=== PATIENT | male | born 1995 | race Caucasian/White ===

== ENCOUNTER → 2017-04-27 | Day surgery (SDC) | payer OTHER ==
[~2017-04-27] VITALS: Ht 180.3 cm; Wt 83.2 kg
[~2017-04-27] MED LIST: *morphine SULFATE 8 MG/ML PERIprocedure ONLY ONE; ACETAMINOPHEN/HYDROcodone 325 MG/5 MG TAB PO PRN; BUPIVACAINE HCL PF 0.5% 30 ML VIAL ONE; CHLORHEXIDINE GLUCONATE 2 % 1 PACK (2 CLOTHS) TOPICAL PRN; CIPR250T52 PO; CIPROFLOXACIN/DEXT 400 MG/200 ML IV SCH; DEXAMETHASONE SOD PHOS 4 MG/ML VIAL IV ONE; DO NOT ADM ANY ANTICOAGULANT DRUGS PRN; LACTATED RINGER'S 1000 ML IV PRN; LIDOCAINE HCL 1% PF 5 ML SYRINGE OTHER ONE; LIDOCAINE HCL 2% 50 ML VIAL ONE; MEPERIDINE HCL 50 MG/ML VIAL IM PRN; METOPROLOL TARTRATE 25 MG TAB PO PRN; NEOMYCIN/POLYMYXIN 1 ML G.U. IRRIGANT ONE; NORC5TAB PO; ONDANSETRON HCL 4 MG/2 ML VIAL IV PUSH ONE; PHENYLEPH/NS 1000 MCG/10 ML SYR IV ONE; POVIDONE IODINE 5% (ANTISEPSIS KIT) 4 APPLICATIONS EACH NARE PRN; PROPOFOL 200 MG/20 ML AMP IV ONE; SODIUM CHLORID 0.9% 500 ML IV PRN
[2017-04-27 16:15] VITALS: BP 138/68; PULSE 83; RESP 18; TEMP 98.4; O2SAT 100
--- NOTE | 2017-04-28 05:31 | MP ---
cc: JACOBY VALVERDE III, M.D. DATE OF SURGERY 04/27/2017 PREOPERATIVE DIAGNOSIS Right second metacarpal fracture. PROCEDURE 1. Right second metacarpal fracture open reduction and internal fixation. 2. Use of image intensifier. SURGEON Jacoby Valverde III, MD PROCEDURE The patient was brought to the operating, placed supine on the operating table. After the correct site and side of surgery were verified by members of each team in the room multiple times including the patient and myself, after adequate preoperative markings were verified by everyone, after preoperative time-out was performed to everyone's satisfaction and, after adequate general anesthesia was achieved, the right upper extremity was prepped and draped in traditional sterile surgical fashion. A 50/50 mixture of 2% plain lidocaine and 0.5% plain Marcaine was infiltrated in the skin and subcutaneous tissue on the dorsal aspect of the hand. The limb was exsanguinated with an Colton wrap. A highly placed, well-padded tourniquet was inflated to 200 mmHg. Dorsally the incision was made overlying the second metacarpal. Bipolar electrocautery was used. Blunt dissection was performed. The second metacarpal was exposed using a periosteal elevator. The fracture was distracted. Organized clot was extracted. Thorough irrigation with saline was performed. The fracture was found be very long and spiral, more than two-thirds the length of the metacarpal. It was reduced precisely. A dorsally stainless steel plate was selected from the [employer] modular handset. Screws tailored to length and placed. The fracture was completely reduced. Passive range of motion was performed and found be full and unlimited with no mal-angulation or malrotation. There are no other anatomic abnormalities identified. Thorough irrigation was performed. The periosteum was closed over the hardware using interrupted 4-0 Vicryl sutures. The skin edges were reapproximated using subcutaneous 4-0 Vicryl and then 4-0 nylon in the skin in a running fashion. The hand and arm were thoroughly cleansed with Betadine. Adaptic dressing was applied on top of the wound, followed by a bulky soft dressing. Additional local anesthetic was injected for postoperative pain control. The axillary tourniquet was released. The hand and all fingers on the right became immediately soft, pink, warm and had brisk capillary refill of less than 2 seconds. A well-padded, well molded volar immobilizing splint was made in the usual fashion. The patient was awakened from anesthesia and transported to Post-Anesthesia Care Unit awake and in stable condition at the end of the case. The sponge, needle and instrument counts were correct at the end of the case as reported by the nurses in the room. MD BHAVIK Mccord III/PADMAJA /2:54 PM /5:20 AM
== END | disposition home or self-care (01) ==
LOC: HSDC 10:16
PROVIDERS: ATTEND Orthopaedic Surgery Hand Surgery
DX: S62.330A Displaced fracture of neck of second metacarpal bone, right hand, initial encounter for closed fracture (principal)
CPT/HCPCS: 01830; 26615; C1713; J0744; J1100; J2270; J2370; J2405; J3010; J7120